=== PATIENT | female | born 1940 | race Two or more races ===

== ENCOUNTER 2018-09-15 21:46 | Inpatient (IN) | payer MEDICARE, MEDICAID ==
[~2018-09-15] VITALS: Ht 152.4 cm; Wt 85.3 kg
--- NOTE | 2018-09-15 22:00 | NUR ---
PT BIBRA COMPLAINING OF SOB. PER EMS, PT SATURATING 89% IN ROOM AIR, WHEN PUT ON NON-REBREATHER PT SATING 99%. DYSPNEA AND TACHYPNEA NOTED. PT PUT ON THE BATCH DUMPER AND PULSE OX. PT SATURATING 97% ON ROOM AIR. 2LPM O2 APPLIED VIA N/C.
--- NOTE | 2018-09-15 22:14 | NUR ---
XRAY AT BEDSIDE.
[2018-09-15] MEDS ORDERED: FUROSEMIDE 40 MG/4 ML VIAL ONE (22:18)
[2018-09-15] MEDS ORDERED: ASPIRIN 81 MG TAB.CHEW ONE (22:19)
[2018-09-15] MEDS ORDERED: NITROGLYCERIN PACKET 1 GM PACKET ONE (22:19)
[2018-09-15] MEDS ORDERED: NITROGLYCERIN PACKET 1 GM PACKET TD ONE (22:30)
[2018-09-15] MEDS ORDERED: FUROSEMIDE 40 MG/4 ML VIAL IV ONE (22:30)
[2018-09-15] MEDS ORDERED: ASPIRIN 81 MG TAB.CHEW PO ONE (22:30)
[2018-09-15 22:36] LABS: BASOPHILS # (AUTO) 0.1 /CMM (0.0-0.2); BASOPHILS % (AUTO) 0.7 % (0.0-2.0); HEMATOCRIT 37 % (33-45); HEMOGLOBIN 11.8 g/dL (11.5-14.8); LYMPHOCYTES # (AUTO) 0.4 /CMM (0.8-4.8); LYMPHOCYTES % (AUTO) 2.6 % (20.0-44.0); MEAN CORPUSCULAR HGB CONC 32 g/dl (31.0-36.0); MEAN CORPUSCULAR VOLUME 83 fL (82-100); MONOCYTES # (AUTO) 0.2 /CMM (0.1-1.30); MONOCYTES % (AUTO) 1.2 % (2.0-12.0); NEUTROPHILS # (AUTO) 12.8 /CMM (1.8-8.9); NEUTROPHILS % (AUTO) 94.5 % (43.0-81.0); PLATELET COUNT (AUTO) 162 /CMM (150-450); RED BLOOD CELL COUNT(AUTO) 4.49 MIL/uL (4.0-5.2); WHITE BLOOD COUNT (AUTO) 13.6 K/uL (4.3-11.0)
[2018-09-15 22:55] LABS: CALCIUM, SERUM 8.6 mg/dL (8.5-10.1); CARBON DIOXIDE 26 mmol/L (21-32); CHLORIDE 104 mmol/L (98-107); CREATININE 1.6 mg/dL (0.6-1.3); GLUCOSE 174 mg/dL (74-106); POTASSIUM 4.5 mmol/L (3.5-5.1); SODIUM SERUM 140 mmol/L (136-145); UREA NITROGEN, BLOOD 32 mg/dL (7-18)
[2018-09-15 22:57] LABS: ALANINE AMINOTRANSFERASE 35 U/L (12-78); ALBUMIN 3.9 g/dL (3.4-5.0); ALKALINE PHOSPHATASE 109 U/L (46-116); ASPARTATE AMINOTRANSFERASE 40 U/L (15-37); B-TYPE NATRIURETIC PEPTIDE 1032 PG/ML (0-125); BILIRUBIN,DIRECT 0.1 mg/dL (0.0-0.2); BILIRUBIN,TOTAL 0.5 mg/dL (0.2-1.0); TOTAL PROTEIN, SERUM 7.1 g/dL (6.4-8.2)
--- NOTE | 2018-09-15 23:38 | NUR ---
PT RESTING IN BED, NAD NOTED. WILL CONTINUE TO MONITOR.
[2018-09-16] VITALS (7 sets, daily range): BP systolic 96–134; BP diastolic 42–64
--- NOTE | 2018-09-16 00:51 | NUR ---
REPORT GIVEN TO BRIAN FOR MAGGIE.
--- NOTE | 2018-09-16 01:16 | NUR ---
PT AMBULATED WITH STEADY GAIT, URINE SAMPLE OBTAINED. SENT TO LAB. URINE OUTPUT 500ML.
[2018-09-16] MEDS ORDERED: ZOLPIDEM TARTRATE 5 MG TABLET PO PRN (01:30)
[2018-09-16] MEDS ORDERED: MAG HYDROX/AL HYDROX/SIMETH 30 ML UDC PO PRN (01:30)
[2018-09-16] MEDS ORDERED: IPRATROPIUM NEB FS 0.5 MG/2.5 ML AMPUL.NEB NEB PRN (01:30)
[2018-09-16] MEDS ORDERED: Z GUARD REMEDY 2 OZ OINT TP PRN (01:30)
[2018-09-16] MEDS ORDERED: MAGNESIUM HYDROXIDE 30 ML UDC PO PRN (01:30)
[2018-09-16] MEDS ORDERED: GUAIFENESIN/D-METHORPHAN HB 5 ML UDC PO PRN (01:30)
[2018-09-16] MEDS ORDERED: ONDANSETRON HCL/PF 4 MG/2 ML VIAL IVP PRN (01:30)
[2018-09-16] MEDS ORDERED: HYDROCODONE/APAP 5/325MG 1 EACH TABLET PO PRN (01:30)
[2018-09-16] MEDS ORDERED: ACETAMINOPHEN 325 MG TABLET PO PRN (01:30)
[2018-09-16] MEDS ORDERED: *INSULIN REGULAR(HUMULIN R)HUM 100 UNIT/ML VIAL SQ PRN (02:00)
[2018-09-16] MEDS ORDERED: DEXTROSE 50%-WATER 50 ML DISP.SYRIN IV PRN (02:00)
[2018-09-16] MEDS ORDERED: INSULIN REGULAR, HUMAN 100 UNIT/ML 3 ML VIAL SQ PRN (02:00)
--- NOTE | 2018-09-16 02:21 | NUR ---
TELE/RN OPENING NOTES NEW ADMITTED PATIENT ARRIVED FROM ER ON A GURNEY ACCOMPANIED BY DAUGHTER, PATIENT IS A 78 Y.O [place] SPEAKING ABLE TO AMBULATE WITH ASSISTANCE, MORBID OBESE, REQUIRING NASAL CANULA OF 3LITER, WHEEZING, MD BROWN IS THE ADMITTING MD, SKIN INTACT, IV ON LEFT AC GAUGE 20 PATENT. PER DAUGHTER HOME MEDICATION TO F/U WITH [facility]ARM[facility] AT [phone] AIME GUO. REFUSES FLU VACCINE AND PNA VACCINE. DENIES PAIN. DIET ORDER PER MD REGULAR. WILL MONITOR. MD WITH ORDER, IV ANTIBIOTIC THERAPY AND LOVENOX PRESCRIBED.ROOM ORIENTATION PROVIDED, BELONGINGS CHECKED.CALL LIGHTS WITHIN REACH, BED LOCKED.
[2018-09-16] MEDS ORDERED: CEFTRIAXONE 1 G VIAL ONE (02:22)
[2018-09-16] MEDS: ALBUTEROL FS 2.5 MG/3 ML VIAL.NEB NEB SCH ×5 (02:22→20:18)
[2018-09-16] MEDS: CEFTRIAXONE 1 G in IV D5W 50 ML IV SCH (02:56)
[2018-09-16] MEDS: ENOXAPARIN SODIUM 30 MG/0.3 ML DISP.SYRIN SQ SCH ×2 (02:58→22:13)
[2018-09-16] MEDS: AZITHROMYCIN 250 MG TABLET PO SCH (03:33)
[2018-09-16 04:17] LABS: APPEARANCE,URINE CLEAR (CLEAR); BILIRUBIN,URINE NEGATIVE (NEGATIVE); BLOOD, URINE NEGATIVE Ery/uL (NEGATIVE); COLOR,URINE OTHER (YELLOW); KETONES,URINE NEGATIVE (NEGATIVE); LEUKOCYTE ESTERASE ,URINE 1+ (NEGATIVE); NITRITE, URINE NEGATIVE (NEGATIVE); PROTEIN,URINE NEGATIVE (NEGATIVE); UGLUCOSE NEGATIVE (NEGATIVE); UROBILINOGEN,URINE 0.2 EU/dL (0.2)
[2018-09-16 04:25] LABS: WBC,URINE 21-50 /HPF (0-3)
[2018-09-16 04:26] LABS: BACTERIA,URINE Few /HPF (None Seen); SQUAMOUS EPITHELIAL CELL,UR Few /HPF (None Seen)
[2018-09-16] MEDS: BLOOD SUGAR DIAGNOSTIC 1 EACH STRIP VI SCH ×4 (06:04→22:11)
--- NOTE | 2018-09-16 06:53 | NUR ---
324-2 TELE/RN NOTES PATIENT RESTING COMFORTABLY , BREATHING TREATMENT PROVIDED BY RT, ON OXYGEN VIA NC, ADMINISTERED IV ANTIBIOTIV BY MOUTH AND IV, TOLERATED W/ NO S/S OF COMPLICATION, KEPT COMFORTABLE. WILL ENDORSE TO AM RN FOR MAGGIE.
--- NOTE | 2018-09-16 07:55 | NUR ---
MS RN RECEIVED ON BED, AWAKE,ALERT, ORIENTED X3, GUYANESE SPEAKING, NOT IN ANY FORM OF DISTRESS, RESPIRATIONS EVEN AND UNLABORED, NO SOB NOTED. LUNGS ARE RONCHI BILATERALLY, ABDOMEN SOFT,POSITIVE BOWEL SOUNDS. DENIES PAIN AT THIS TIME,ALL NEEDS ATTENDED.
[2018-09-16] MEDS: FUROSEMIDE 20 MG/2 ML VIAL IV SCH ×2 (09:21→17:16)
[2018-09-16] MEDS: ASPIRIN 81 MG TAB.CHEW PO SCH (09:21)
--- NOTE | 2018-09-16 09:55 | NUR ---
MS VIVAS BREAKFAST SERVED,DUE MEDS GIVEN, TOLERATED WELL.
[2018-09-16] MEDS ORDERED: HYDR-4077 PO (13:18)
[2018-09-16] MEDS ORDERED: OLME1TAB34 PO (13:18)
[2018-09-16] MEDS ORDERED: MONT10TA22 PO (13:18)
[2018-09-16] MEDS ORDERED: ATOR20TA PO (13:18)
[2018-09-16] MEDS ORDERED: CELE200C PO (13:18)
[2018-09-16] MEDS ORDERED: MEMA10TA PO (13:18)
[2018-09-16] MEDS ORDERED: CLON0.1T PO (13:18)
[2018-09-16] MEDS ORDERED: METO-357 PO (13:18)
[2018-09-16] MEDS ORDERED: MECL-102 PO (13:18)
[2018-09-16] MEDS ORDERED: FURO40TA5 PO (13:18)
--- NOTE | 2018-09-16 14:00 | NUR ---
ms rn received medication list from pt's rx and entered it in the computer.
--- NOTE | 2018-09-16 15:00 | NUR ---
ms rn texted inderjit ordonez to reconcile meds.
--- NOTE | 2018-09-16 18:42 | NUR ---
MS RN ON BED, NO DISTRESS NOTED.
--- NOTE | 2018-09-16 19:10 | NUR ---
MS RN NOTES RECEIVED PT IN BED AND AWAKE WITH FAMILY AT BEDSIDE. PT A/O X3 AND ENGLISH SPEAKING. RESPIRATIONS EVEN AND UNLABORED WITH NO S/S OF ACUTE DISTRESS OR SOB NOTED. PT DENIES PAIN AT THIS TIME. CALL LIGHT WITHIN REACH. WILL CONTINUE TO MONITOR.
[2018-09-16] MEDS: ATORVASTATIN 10 MG TABLET PO SCH (22:11)
--- NOTE | 2018-09-16 22:14 | NUR ---
MS RN NOTE PT REFUSED REGULAR INSULIN, NO COVERAGE WAS GIVEN FOR BS 134.
[2018-09-17] MEDS: AZITHROMYCIN 250 MG TABLET PO SCH (00:30)
[2018-09-17] MEDS: CEFTRIAXONE 1 G in IV D5W 50 ML IV SCH (00:30)
[2018-09-17] MEDS: BLOOD SUGAR DIAGNOSTIC 1 EACH STRIP VI SCH ×4 (06:43→22:28)
--- NOTE | 2018-09-17 07:11 | NUR ---
MS RN NOTES PT IN BED AND SLEEPING BUT EASILY AWOKEN VERBALLY OR BY TOUCH, WITH FAMILY AT BEDSIDE. PT A/O X3 AND GERMAN SPEAKING. RESPIRATIONS EVEN AND UNLABORED WITH NO S/S OF ACUTE DISTRESS OR SOB THROUGHOUT SHIFT. PT DENIES PAIN AT THIS TIME. LEFT AC #20G PATENT AND INTACT AND SL. CALL LIGHT WITHIN REACH. WILL ENDORSE TO ONCOMING NURSE FOR CONTINUATION OF CARE.
--- NOTE | 2018-09-17 07:54 | NUR ---
MS RN OPENING NOTE RECEIVED PATIENT IN BED. ALERT ORIENTED X4, ON 3L O2 VIA NC, TOLERATING WELL. IN NO APPARENT DISTRESS OR DISCOMFORT AT THIS TIME. RESPIRATIONS EVEN AND UNLABORED. DENIES PAIN AND SOB. PATIENT IS ABLE TO COMMUNICATE NEEDS. ABLE TO AMBULATE WITH ASSIST. LEFT AC 20G SL, PATENT AND INTACT. PATIENT KEPT CLEAN AND COMFORTABLE. ALL NEEDS ATTENDED, SAFETY MEASURES IN PLACE, BED IN LOW LOCKED POSITION, SIDE RAILS UP X2, CALL LIGHT WITHIN EASY REACH, FAMILY AT BEDSIDE, WILL CONTINUE TO MONITOR.
[2018-09-17 08:00] VITALS: BP 134/58
[2018-09-17] MEDS: ALBUTEROL FS 2.5 MG/3 ML VIAL.NEB NEB SCH ×4 (08:29→19:30)
[2018-09-17] MEDS: ASPIRIN 81 MG TAB.CHEW PO SCH (08:37)
[2018-09-17 09:00] VITALS: BP 122/51
[2018-09-17] MEDS: FUROSEMIDE 20 MG/2 ML VIAL IV SCH (09:12)
--- NOTE | 2018-09-17 10:07 | NUR ---
PATIENT WITH BODY TEMPERATURE OF 101.8. COOLING MEASURES APPLIED, PRN TYLENOL ADMINISTERED. BHAVESH LAINEZ NOTIFIED. NO NEW ORDERS AT THIS TIME. WILL MONITOR FOR CHANGES. Addendum: 09/17/18 at 1010 by LINETTE CLAROS RN AT 0900.
--- NOTE | 2018-09-17 10:09 | NUR ---
PATIENT'S BODY TEMPERATURE DECREASED TO 99.7/ WILL CONTINUE TO MONITOR.
[2018-09-17 10:15] VITALS: BP 113/53
[2018-09-17 11:15] LABS: CALCIUM, SERUM 8.2 mg/dL (8.5-10.1); CARBON DIOXIDE 30 mmol/L (21-32); CHLORIDE 102 mmol/L (98-107); CREATININE 1.9 mg/dL (0.6-1.3); GLUCOSE 164 mg/dL (74-106); MAGNESIUM 1.9 mg/dL (1.8-2.4); PHOSPHORUS 3.9 mg/dL (2.5-4.9); SODIUM SERUM 140 mmol/L (136-145); UREA NITROGEN, BLOOD 35 mg/dL (7-18)
[2018-09-17 11:26] LABS: CHOLESTEROL 132 mg/dL (<200); HDL CHOLESTEROL 38 mg/dL (40-60); LDL 78 mg/dL (0-99); TRIGLYCERIDES 117 mg/dL (30-150)
[2018-09-17 11:49] LABS: BASOPHILS % (AUTO) 0.4 % (0.0-2.0); EOSINOPHILS % (AUTO) 0.1 % (0.0-6.0); HEMATOCRIT 33 % (33-45); HEMOGLOBIN 10.9 g/dL (11.5-14.8); LYMPHOCYTES # (AUTO) 0.6 /CMM (0.8-4.8); LYMPHOCYTES % (AUTO) 7.1 % (20.0-44.0); MEAN CORPUSCULAR HGB CONC 33 g/dl (31.0-36.0); MEAN CORPUSCULAR VOLUME 82 fL (82-100); MONOCYTES # (AUTO) 0.7 /CMM (0.1-1.30); NEUTROPHILS # (AUTO) 7.5 /CMM (1.8-8.9); NEUTROPHILS % (AUTO) 84.4 % (43.0-81.0); PLATELET COUNT (AUTO) 118 /CMM (150-450); RED BLOOD CELL COUNT(AUTO) 4.09 MIL/uL (4.0-5.2); WHITE BLOOD COUNT (AUTO) 8.9 K/uL (4.3-11.0)
[2018-09-17 16:07] VITALS: BP 104/49
[2018-09-17] MEDS ORDERED: MECLIZINE HCL 25 MG TABLET PO PRN (17:30)
[2018-09-17 17:33] LABS: BASOPHILS % (AUTO) 0.3 % (0.0-2.0); EOSINOPHILS % (AUTO) 0.3 % (0.0-6.0); HEMATOCRIT 35 % (33-45); HEMOGLOBIN 11.4 g/dL (11.5-14.8); LYMPHOCYTES % (AUTO) 12.3 % (20.0-44.0); MEAN CORPUSCULAR HGB CONC 32 g/dl (31.0-36.0); MEAN CORPUSCULAR VOLUME 83 fL (82-100); MONOCYTES # (AUTO) 0.7 /CMM (0.1-1.30); MONOCYTES % (AUTO) 8.4 % (2.0-12.0); NEUTROPHILS # (AUTO) 6.3 /CMM (1.8-8.9); NEUTROPHILS % (AUTO) 78.7 % (43.0-81.0); PLATELET COUNT (AUTO) 119 /CMM (150-450); RED BLOOD CELL COUNT(AUTO) 4.25 MIL/uL (4.0-5.2)
[2018-09-17] MEDS: CELECOXIB 100 MG CAPSULE PO SCH (18:31)
--- NOTE | 2018-09-17 18:53 | NUR ---
MS RN CLOSING NOTE PATIENT SITTING IN A CHAIR. ALERT ORIENTED X4, ON ROOM AIR, TOLERATING WELL. IN NO APPARENT DISTRESS OR DISCOMFORT AT THIS TIME. RESPIRATIONS EVEN AND UNLABORED. DENIES PAIN AND SOB. PATIENT IS ABLE TO COMMUNICATE NEEDS. REPORTS SOB ONLY WITH EXERTION, ABLE TO AMBULATE WITH ASSIST. LEFT AC 20G SL, PATENT AND INTACT. PATIENT KEPT CLEAN AND COMFORTABLE. ALL NEEDS ATTENDED, SAFETY MEASURES IN PLACE, BED IN LOW LOCKED POSITION, SIDE RAILS UP X2, CALL LIGHT WITHIN EASY REACH, FAMILY AT BEDSIDE, WILL ENDORSE TO PM NURSE FOR MAGGIE.
--- NOTE | 2018-09-17 19:10 | NUR ---
MS RN NOTES RECEIVED PT IN BED AWAKE WITH FAMILY AT BEDSIDE. PT A/O X3 AND DJIBOUTIAN SPEAKING. RESPIRATIONS EVEN AND UNLABORED WITH NO S/S OF ACUTE DISTRESS OR SOB. PT DENIES PAIN AT THIS TIME. PT ON RA AND TOLERATING WELL. LEFT AC #20G PATENT AND INTACT AND SL. CALL LIGHT WITHIN REACH. WILL CONTINUE TO MONITOR.
[2018-09-17 20:00] VITALS: BP 109/77
[2018-09-17 20:01] LABS: D-DIMER 0.23 mg/L(FEU (0.17-0.50)
--- NOTE | 2018-09-17 22:00 | NUR ---
MS RN NOTES PT REFUSED COVERAGE FOR HS BS 139. NO COVERAGE WAS GIVEN.
[2018-09-17] MEDS: ATORVASTATIN 10 MG TABLET PO SCH (22:29)
[2018-09-18] MEDS: CEFTRIAXONE 1 G in IV D5W 50 ML IV SCH (00:45)
[2018-09-18] MEDS: BLOOD SUGAR DIAGNOSTIC 1 EACH STRIP VI SCH (06:46)
--- NOTE | 2018-09-18 07:04 | NUR ---
MS RN NOTES PT IN BED SLEEPING BUT EASILY AWOKEN VERBALLY OR BY TOUCH, WITH FAMILY AT BEDSIDE. PT A/O X3 AND LUXEMBOURGER SPEAKING. RESPIRATIONS EVEN AND UNLABORED WITH NO S/S OF ACUTE DISTRESS OR SOB THROUGHOUT SHIFT. PT ON RA SAT @94%. PT DENIES PAIN AT THIS TIME. LEFT AC #20G PATENT AND INTACT AND SL. CALL LIGHT WITHIN REACH. WILL ENDORSE TO ONCOMING NURSE FOR CONTINUATION OF CARE.
--- NOTE | 2018-09-18 07:30 | NUR ---
MSRN. PT RECEIVED OOB IN CHAIR AND WITH DTR PRESENT FOR TRANSLATION. PT TOLERATING ROOM AIR WITHOUT DISTRESS AND DENIES SOB. PT REFUSING NC ASSISTANCE. PT DENIES PAIN OR DISCOMFORT. PT WITH IVC AT L AC INTACT AND SALINE FLUSH PATENT, LEAKING NOTED. PT AND PT DTR REQUESTING TO LEAVE. PT BED IN LOWEST LOCKED POSITION WITH [id number] AND CALL NOBLE WITHIN REACH. PT BRIEFED ON POC AND ARE WITHOUT CONCERN OR [id number].
[2018-09-18 07:49] LABS: BASOPHILS % (AUTO) 0.4 % (0.0-2.0); EOSINOPHILS % (AUTO) 2.2 % (0.0-6.0); HEMATOCRIT 33 % (33-45); HEMOGLOBIN 10.8 g/dL (11.5-14.8); LYMPHOCYTES # (AUTO) 0.4 /CMM (0.8-4.8); LYMPHOCYTES % (AUTO) 5.9 % (20.0-44.0); MEAN CORPUSCULAR HGB CONC 33 g/dl (31.0-36.0); MEAN CORPUSCULAR VOLUME 82 fL (82-100); MONOCYTES # (AUTO) 0.6 /CMM (0.1-1.30); MONOCYTES % (AUTO) 8.5 % (2.0-12.0); NEUTROPHILS # (AUTO) 5.7 /CMM (1.8-8.9); PLATELET COUNT (AUTO) 107 /CMM (150-450); RED BLOOD CELL COUNT(AUTO) 4.03 MIL/uL (4.0-5.2); WHITE BLOOD COUNT (AUTO) 6.8 K/uL (4.3-11.0)
[2018-09-18 08:00] VITALS: BP 118/56
[2018-09-18 08:03] LABS: CALCIUM, SERUM 8.2 mg/dL (8.5-10.1); CARBON DIOXIDE 28 mmol/L (21-32); CHLORIDE 101 mmol/L (98-107); CREATININE 1.7 mg/dL (0.6-1.3); GLUCOSE 115 mg/dL (74-106); POTASSIUM 4.7 mmol/L (3.5-5.1); SODIUM SERUM 139 mmol/L (136-145); UREA NITROGEN, BLOOD 41 mg/dL (7-18)
[2018-09-18] MEDS: ALBUTEROL FS 2.5 MG/3 ML VIAL.NEB NEB SCH ×2 (08:14→11:16)
[2018-09-18] MEDS: ASPIRIN 81 MG TAB.CHEW PO SCH (08:40)
[2018-09-18] MEDS: CELECOXIB 100 MG CAPSULE PO SCH (08:41)
[2018-09-18] MEDS ORDERED: MEMANTINE HCL 5 MG TABLET PO SCH (09:00)
[2018-09-18] MEDS ORDERED: MONTELUKAST SODIUM (10MG) 10 MG TABLET PO SCH (09:00)
--- NOTE | 2018-09-18 12:32 | NUR ---
MSRN. PT PREPARED FOR D/C PER MD. PT TOLERATING ROOM AIR WITHOUT DISTRESS AND DENIES SOB. PT DENIES PAIN. PT IVC REMOVED AND NAD AT SITE. PT WITH DTR FOR TRANSLATION BRIEFED ON SO D/C PACKET, FOLLOW UPS TO SCHEDULE, WHEN AND HOW TO FILL RX, HOME AND NEW MEDICATIONS AND WHEN TO SEEK FURTHER MEDICAL ATTENTION. PT DTR VERBALIZING UNDERSTANDING, RESOURCES AND INTENT TO FOLLOW POC. PT WITH ALL BELONGINGS AND DOCUMENT SIGNED. PT WITH DTR AND G.DTR FOR TRANSPORT, RN ESCORT TO CAR VIA WHEELCHAIR. PT AND DTR LEFT WITHOUT CONCERN OR COMPLAINT AND GRATEFUL FOR CARE.
--- NOTE | 2018-09-18 12:35 | NUR ---
PT HAIR BRUSH FOUND IN BATHROOM, PLACED WITH STICKER IN 'LEFT PT BELONGINGS' DRAW IN NURSES STATION.
== END 2018-09-18 12:20 | disposition home or self-care (01) | DRG 871 ==
LOC: ER 21:49 → EDBD 21:49 → TELE 09-16 01:07 → MED 09-16 16:27
PROVIDERS: ADMIT Nurse Practitioner Acute Care; ATTEND Internal Medicine
DX: A41.9 Sepsis, unspecified organism (principal); J18.9 Pneumonia, unspecified organism; I50.33 Acute on chronic diastolic (congestive) heart failure; J96.01 Acute respiratory failure with hypoxia; I16.9 Hypertensive crisis, unspecified; I13.0 Hypertensive heart and chronic kidney disease with heart failure and stage 1 through stage 4 chronic kidney disease, or unspecified chronic kidney disease; N17.9 Acute kidney failure, unspecified; N39.0 Urinary tract infection, site not specified; J81.1 Chronic pulmonary edema; J45.909 Unspecified asthma, uncomplicated; N18.9 Chronic kidney disease, unspecified; E66.9 Obesity, unspecified; Z68.36 Body mass index [BMI] 36.0-36.9, adult
CPT/HCPCS: 36415; 71045-TC; 80048-TC; 80061-TC; 80076-TC; 81000-TC; 82962-TC; 83605-TC; 83735-TC; 83880; 84100-TC; 84484-TC; 85025-TC; 85378-TC; 85396; 87040-TC; 87081-TC; 87086-TC; 87186-TC; 93307-TC; 94799-TC; G0378; J0696; J1650; J1815; J1940; J7060